=== PATIENT | male | born 1975 | race Caucasian/White ===

== ENCOUNTER 2018-01-18 15:48 | Emergency (ER) | payer MEDICAID ==
[~2018-01-18] VITALS: Ht 175.3 cm; Wt 92.3 kg
[2018-01-18 16:10] VITALS: BP 129/88
--- NOTE | 2018-01-18 17:54 | NUR ---
PT IN GOWN AT THIS TIME. RESTING IN BED AND AWAITING MD CLANCY.
== END 2018-01-18 18:40 | disposition home or self-care (01) ==
LOC: ED 18:17
DX: Z43.6 Encounter for attention to other artificial openings of urinary tract (principal)
CPT/HCPCS: 99281

== ENCOUNTER 2018-06-08 02:38 | Inpatient (IN) | payer MEDICAID ==
[~2018-06-08] VITALS: Ht 175.3 cm; Wt 95.3 kg
[2018-06-08] MEDS ORDERED: ONDANSETRON 2MG/ML, 2ML ONE (02:51)
--- NOTE | 2018-06-08 02:51 | NUR ---
EP CALLED PER DR SHAVER AND THEY WILL ADD VIRAL CULTURES, WEST NILE ON TO LP FLUID.
[2018-06-08] MEDS ORDERED: SODIUM CHLORIDE 0.9% 1,000 ML IV ONE (02:52)
[2018-06-08] MEDS ORDERED: MORPHINE SULFATE 4 MG/ML, 1ML ONE (02:52)
[2018-06-08] MEDS ORDERED: ONDANSETRON 2MG/ML, 2ML IVPush ONE (03:00)
[2018-06-08] MEDS ORDERED: SODIUM CHLORIDE FLUSH 10ML SYR IVF ONE (03:00)
[2018-06-08] MEDS ORDERED: MORPHINE SULFATE 4 MG/ML, 1ML IVPush PRN (03:00)
--- NOTE | 2018-06-08 03:04 | NUR ---
pt resting comfortably in [facility] at this time. Dr. Shelton assessed pt and new orders received. IV access obtained x 2. Pt attached to vs machines. vss at this time. Pt placed in negative pressure room with droplet precautions and isolation cart in place. pt educated on er process and poc and verbalizes understanding. Call light is within reach at this time. Pt denies any other needs at this time.
--- NOTE | 2018-06-08 03:30 | NUR ---
report of pt to floor rn. all questions answered.
[2018-06-08 03:41] VITALS: BP 116/81
[2018-06-08] MEDS: SODIUM CHLORIDE 0.9% 1,000 ML IV SCH ×3 (03:59→22:12)
[2018-06-08] MEDS ORDERED: ONDANSETRON 2MG/ML, 2ML IVPush PRN (04:00)
[2018-06-08] MEDS ORDERED: HYDROcodone/APAP 5/325 TABLET PO PRN (04:00)
[2018-06-08 04:56] LABS: HCT (SEDRATE) 51.2 % (39.2-51.8)
[2018-06-08 04:57] LABS: BASOPHILS # (AUTO) 0.01 x10^3/uL (0-0.1); BASOPHILS % (AUTO) 0 % (0-1); EOSINOPHILS % (AUTO) 0 % (1-7); LYMPHOCYTES # (AUTO) 0.77 x10^3/uL (1-3.4); LYMPHOCYTES % (AUTO) 15 % (22-44); MD NO; MEAN CORPUSCULAR HEMOGLOBIN 32.2 pg (27.5-34.5); MEAN CORPUSCULAR HGB CONC 34.6 g/dL (33.2-36.2); MEAN CORPUSCULAR VOLUME 93.1 fL (81-97); MEAN PLATELET VOLUME 7.6 fL (7.4-10.4); MONOCYTES # (AUTO) 0.05 x10^3/uL (0.2-0.8); MONOCYTES % (AUTO) 1 % (2-9); NEUTROPHILS # (AUTO) 4.18 x10^3/uL (1.8-6.8); NEUTROPHILS % (AUTO) 83 % (42-75); PLATELET COUNT 264 x10^3/uL (130-400); RED BLOOD COUNT 5.49 x10^6/uL (4.38-5.82)
[2018-06-08 05:00] LABS: ANION GAP 5 mmol/L (5-15); C-REACTIVE PROTEIN, QUANT 0.04 mg/dL (0.02-0.49); CALCIUM 8.2 mg/dL (8.5-10.1); CHLORIDE 109 mmol/L (98-107); CREATININE 1.17 mg/dL (0.7-1.3)
[2018-06-08 05:02] LABS: CREATINE KINASE, TOTAL 117 U/L (39-308)
[2018-06-08 07:31] VITALS: BP 114/76
[2018-06-08] MEDS: morphine SULFATE 10 MG/ML, 1ML IVPush PRN ×3 (07:38→21:46)
[2018-06-08] MEDS ORDERED: VANCOMYCIN PER PHARMACY MC PRN (09:00)
[2018-06-08] MEDS ORDERED: PHARMACOKINETIC MONITORING MC PRN (09:30)
[2018-06-08] MEDS ORDERED: ACYCLOVIR IV SCH ×2 (09:30→09:32)
[2018-06-08] MEDS ORDERED: SODIUM CHLORIDE 0.9% IV SCH ×2 (09:30→09:32)
[2018-06-08] MEDS ORDERED: PHARMACOKINETIC CONSULTATION MC ONE (09:30)
[2018-06-08] MEDS ORDERED: [UNRECOGNIZED DRUG - REMARK] MC SCH (09:30)
[2018-06-08 09:51] LABS: MICROSCOPIC NOT IND
[2018-06-08] MEDS: CEFTRIAXONE PMX 2GM/50ML 50 ML IV SCH ×2 (10:04→21:33)
[2018-06-08] MEDS: NICOTINE 21 MG/24 HR PATCH.TD24 TD SCH (11:01)
[2018-06-08] MEDS: VANCOMYCIN 2,000 MG in SODIUM CHLORIDE 0.9% 500 ML IV SCH (11:05)
[2018-06-08] MEDS: SODIUM CHLORIDE 0.9% IV SCH ×2 (13:29→22:12)
[2018-06-08] MEDS: ACYCLOVIR IV SCH ×2 (13:29→22:12)
[2018-06-08 14:00] VITALS: BP 117/67
[2018-06-08 17:37] LABS: HCT (SEDRATE) 45.7 % (39.2-51.8)
[2018-06-08 19:48] VITALS: BP 111/71
[2018-06-09] MEDS: VANCOMYCIN 2,000 MG in SODIUM CHLORIDE 0.9% 500 ML IV SCH ×2 (00:02→13:07)
[2018-06-09 00:20] VITALS: BP 106/65
[2018-06-09] MEDS: morphine SULFATE 10 MG/ML, 1ML IVPush PRN ×4 (03:45→21:45)
[2018-06-09] MEDS: SODIUM CHLORIDE 0.9% IV SCH ×2 (05:43→16:59)
[2018-06-09] MEDS: ACYCLOVIR IV SCH ×2 (05:43→16:59)
[2018-06-09 06:18] LABS: BASOPHILS # (AUTO) 0.04 x10^3/uL (0-0.1); BASOPHILS % (AUTO) 1 % (0-1); EOSINOPHILS # (AUTO) 0.07 x10^3/uL (0-0.4); EOSINOPHILS % (AUTO) 1 % (1-7); LYMPHOCYTES # (AUTO) 3.05 x10^3/uL (1-3.4); LYMPHOCYTES % (AUTO) 37 % (22-44); MD NO; MEAN CORPUSCULAR HGB CONC 35.3 g/dL (33.2-36.2); MEAN CORPUSCULAR VOLUME 93.4 fL (81-97); MEAN PLATELET VOLUME 7.9 fL (7.4-10.4); MONOCYTES # (AUTO) 0.83 x10^3/uL (0.2-0.8); MONOCYTES % (AUTO) 10 % (2-9); NEUTROPHILS # (AUTO) 4.26 x10^3/uL (1.8-6.8); NEUTROPHILS % (AUTO) 52 % (42-75); PLATELET COUNT 242 x10^3/uL (130-400); RED BLOOD COUNT 4.71 x10^6/uL (4.38-5.82); RED CELL DISTRIBUTION WIDTH 13.1 % (9.4-14.8)
[2018-06-09 06:27] LABS: ANION GAP 6 mmol/L (5-15); CALCIUM 7.8 mg/dL (8.5-10.1); CHLORIDE 111 mmol/L (98-107)
[2018-06-09 07:30] VITALS: BP 116/72
[2018-06-09] MEDS: CEFTRIAXONE PMX 2GM/50ML 50 ML IV SCH ×2 (08:57→21:26)
[2018-06-09] MEDS: NICOTINE 21 MG/24 HR PATCH.TD24 TD SCH (10:37)
[2018-06-09] MEDS: SODIUM CHLORIDE 0.9% 1,000 ML IV SCH ×2 (11:24→21:26)
[2018-06-09 13:52] VITALS: BP 113/71
[2018-06-09] MEDS: ACETAMINOPHEN 325 MG TABLET PO PRN ×2 (13:57→21:44)
[2018-06-09 15:36] VITALS: BP 117/73
[2018-06-09 18:49] VITALS: BP 133/79
[2018-06-10] MEDS: VANCOMYCIN 2,000 MG in SODIUM CHLORIDE 0.9% 500 ML IV SCH ×2 (00:07→12:23)
[2018-06-10 01:05] VITALS: BP 108/73
[2018-06-10] MEDS: SODIUM CHLORIDE 0.9% IV SCH ×3 (02:40→18:37)
[2018-06-10] MEDS: ACYCLOVIR IV SCH ×3 (02:40→18:37)
[2018-06-10] MEDS: morphine SULFATE 10 MG/ML, 1ML IVPush PRN ×5 (05:27→22:11)
[2018-06-10 05:54] LABS: BASOPHILS # (AUTO) 0.09 x10^3/uL (0-0.1); BASOPHILS % (AUTO) 1 % (0-1); EOSINOPHILS # (AUTO) 0.08 x10^3/uL (0-0.4); EOSINOPHILS % (AUTO) 1 % (1-7); LYMPHOCYTES # (AUTO) 1.89 x10^3/uL (1-3.4); LYMPHOCYTES % (AUTO) 26 % (22-44); MD NO; MEAN CORPUSCULAR HEMOGLOBIN 32.2 pg (27.5-34.5); MEAN CORPUSCULAR HGB CONC 34.4 g/dL (33.2-36.2); MEAN CORPUSCULAR VOLUME 93.8 fL (81-97); MEAN PLATELET VOLUME 7.7 fL (7.4-10.4); MONOCYTES # (AUTO) 0.78 x10^3/uL (0.2-0.8); MONOCYTES % (AUTO) 11 % (2-9); NEUTROPHILS # (AUTO) 4.51 x10^3/uL (1.8-6.8); NEUTROPHILS % (AUTO) 61 % (42-75); PLATELET COUNT 260 x10^3/uL (130-400); RED BLOOD COUNT 5.13 x10^6/uL (4.38-5.82); RED CELL DISTRIBUTION WIDTH 13.1 % (9.4-14.8)
[2018-06-10 05:59] LABS: ALBUMIN 3.3 g/dL (3.4-5.0); ANION GAP 6 mmol/L (5-15); CALCIUM 8.4 mg/dL (8.5-10.1); CHLORIDE 108 mmol/L (98-107)
[2018-06-10 06:04] LABS: ALANINE AMINOTRANSFERASE 25 U/L (12-78); ALKALINE PHOSPHATASE 74 U/L (45-117); BILIRUBIN,TOTAL 0.9 mg/dL (0.2-1.0); CREATININE 1.05 mg/dL (0.7-1.3); TOTAL PROTEIN 6.1 g/dL (6.4-8.2)
[2018-06-10 07:48] VITALS: BP 124/76
[2018-06-10] MEDS: ACETAMINOPHEN 325 MG TABLET PO PRN ×2 (08:11→19:52)
[2018-06-10] MEDS: CEFTRIAXONE PMX 2GM/50ML 50 ML IV SCH ×2 (09:45→22:12)
[2018-06-10] MEDS: SODIUM CHLORIDE 0.9% 1,000 ML IV SCH ×2 (10:00→18:37)
[2018-06-10] MEDS: NICOTINE 21 MG/24 HR PATCH.TD24 TD SCH (12:23)
[2018-06-10 13:35] VITALS: BP 121/76
[2018-06-10 19:32] VITALS: BP 114/73
[2018-06-10] MEDS: IBUPROFEN 200 MG TABLET PO PRN (22:10)
[2018-06-11 00:18] VITALS: BP 115/74
[2018-06-11] MEDS: VANCOMYCIN 2,000 MG in SODIUM CHLORIDE 0.9% 500 ML IV SCH ×2 (00:21→12:28)
[2018-06-11] MEDS: ACETAMINOPHEN 325 MG TABLET PO PRN ×2 (00:21→19:52)
[2018-06-11] MEDS: ACYCLOVIR IV SCH ×3 (02:37→18:22)
[2018-06-11] MEDS: SODIUM CHLORIDE 0.9% IV SCH ×3 (02:37→18:22)
[2018-06-11] MEDS: morphine SULFATE 10 MG/ML, 1ML IVPush PRN ×6 (02:38→23:08)
[2018-06-11 05:31] LABS: BASOPHILS # (AUTO) 0.09 x10^3/uL (0-0.1); BASOPHILS % (AUTO) 1 % (0-1); EOSINOPHILS # (AUTO) 0.13 x10^3/uL (0-0.4); EOSINOPHILS % (AUTO) 2 % (1-7); LYMPHOCYTES % (AUTO) 38 % (22-44); MD NO; MEAN CORPUSCULAR HEMOGLOBIN 32.4 pg (27.5-34.5); MEAN CORPUSCULAR HGB CONC 34.5 g/dL (33.2-36.2); MEAN CORPUSCULAR VOLUME 93.9 fL (81-97); MEAN PLATELET VOLUME 7.8 fL (7.4-10.4); MONOCYTES # (AUTO) 0.97 x10^3/uL (0.2-0.8); MONOCYTES % (AUTO) 14 % (2-9); NEUTROPHILS # (AUTO) 3.18 x10^3/uL (1.8-6.8); NEUTROPHILS % (AUTO) 45 % (42-75); PLATELET COUNT 250 x10^3/uL (130-400); RED BLOOD COUNT 5.04 x10^6/uL (4.38-5.82); RED CELL DISTRIBUTION WIDTH 12.9 % (9.4-14.8)
[2018-06-11 05:37] LABS: CHLORIDE 109 mmol/L (98-107)
[2018-06-11 05:44] LABS: ALANINE AMINOTRANSFERASE 21 U/L (12-78); ALBUMIN 2.8 g/dL (3.4-5.0); ALKALINE PHOSPHATASE 63 U/L (45-117); ANION GAP 7 mmol/L (5-15); BILIRUBIN,TOTAL 0.7 mg/dL (0.2-1.0); CREATININE 1.05 mg/dL (0.7-1.3); TOTAL PROTEIN 5.6 g/dL (6.4-8.2)
[2018-06-11] MEDS: IBUPROFEN 200 MG TABLET PO PRN ×2 (06:05→22:09)
[2018-06-11] MEDS: SODIUM CHLORIDE 0.9% 1,000 ML IV SCH (06:05)
[2018-06-11 09:45] VITALS: BP 119/77
[2018-06-11] MEDS: CEFTRIAXONE PMX 2GM/50ML 50 ML IV SCH ×2 (09:57→22:09)
[2018-06-11 12:16] VITALS: BP 116/66
[2018-06-11] MEDS: NICOTINE 21 MG/24 HR PATCH.TD24 TD SCH (12:29)
[2018-06-11 14:37] LABS: MICROSCOPIC NOT IND
[2018-06-11 14:44] LABS: CULTURE INDICATED? NO
[2018-06-11 19:37] VITALS: BP 130/80
[2018-06-11 21:59] VITALS: BP 119/75
[2018-06-12] MEDS: VANCOMYCIN 2,000 MG in SODIUM CHLORIDE 0.9% 500 ML IV SCH (00:13)
[2018-06-12 00:17] VITALS: BP 155/76
[2018-06-12] MEDS: ACETAMINOPHEN 325 MG TABLET PO PRN (00:20)
[2018-06-12] MEDS: morphine SULFATE 10 MG/ML, 1ML IVPush PRN ×4 (02:42→22:38)
[2018-06-12] MEDS: ACYCLOVIR IV SCH ×3 (02:43→19:37)
[2018-06-12] MEDS: SODIUM CHLORIDE 0.9% IV SCH ×3 (02:43→19:37)
[2018-06-12 05:38] LABS: BASOPHILS % (AUTO) 2 % (0-1); EOSINOPHILS # (AUTO) 0.18 x10^3/uL (0-0.4); EOSINOPHILS % (AUTO) 3 % (1-7); LYMPHOCYTES % (AUTO) 33 % (22-44); MD NO; MEAN CORPUSCULAR HEMOGLOBIN 32.6 pg (27.5-34.5); MEAN CORPUSCULAR HGB CONC 34.7 g/dL (33.2-36.2); MEAN CORPUSCULAR VOLUME 93.9 fL (81-97); MEAN PLATELET VOLUME 7.7 fL (7.4-10.4); MONOCYTES % (AUTO) 11 % (2-9); NEUTROPHILS # (AUTO) 3.62 x10^3/uL (1.8-6.8); NEUTROPHILS % (AUTO) 52 % (42-75); PLATELET COUNT 263 x10^3/uL (130-400); RED BLOOD COUNT 5.01 x10^6/uL (4.38-5.82); RED CELL DISTRIBUTION WIDTH 12.9 % (9.4-14.8)
[2018-06-12 05:49] LABS: CHLORIDE 110 mmol/L (98-107)
[2018-06-12 05:58] LABS: ALANINE AMINOTRANSFERASE 21 U/L (12-78); ALKALINE PHOSPHATASE 64 U/L (45-117); ANION GAP 9 mmol/L (5-15); BILIRUBIN,TOTAL 0.6 mg/dL (0.2-1.0); CALCIUM 8.3 mg/dL (8.5-10.1); TOTAL PROTEIN 5.8 g/dL (6.4-8.2)
[2018-06-12 08:27] VITALS: BP 149/78
[2018-06-12] MEDS: CEFTRIAXONE PMX 2GM/50ML 50 ML IV SCH (10:12)
[2018-06-12] MEDS: NICOTINE 21 MG/24 HR PATCH.TD24 TD SCH (11:11)
[2018-06-12 13:54] VITALS: BP 134/77
[2018-06-12 19:31] VITALS: BP 139/80
[2018-06-13 01:12] VITALS: BP 131/74
[2018-06-13] MEDS: ACYCLOVIR IV SCH ×3 (03:29→20:23)
[2018-06-13] MEDS: SODIUM CHLORIDE 0.9% IV SCH ×3 (03:29→20:23)
[2018-06-13] MEDS: morphine SULFATE 10 MG/ML, 1ML IVPush PRN ×3 (03:37→19:29)
[2018-06-13 05:58] LABS: BASOPHILS # (AUTO) 0.09 x10^3/uL (0-0.1); BASOPHILS % (AUTO) 1 % (0-1); EOSINOPHILS # (AUTO) 0.17 x10^3/uL (0-0.4); EOSINOPHILS % (AUTO) 2 % (1-7); LYMPHOCYTES # (AUTO) 2.36 x10^3/uL (1-3.4); LYMPHOCYTES % (AUTO) 21 % (22-44); MD NO; MEAN CORPUSCULAR HEMOGLOBIN 32.5 pg (27.5-34.5); MEAN CORPUSCULAR HGB CONC 34.8 g/dL (33.2-36.2); MEAN CORPUSCULAR VOLUME 93.3 fL (81-97); MEAN PLATELET VOLUME 7.6 fL (7.4-10.4); MONOCYTES # (AUTO) 0.95 x10^3/uL (0.2-0.8); MONOCYTES % (AUTO) 9 % (2-9); NEUTROPHILS # (AUTO) 7.57 x10^3/uL (1.8-6.8); NEUTROPHILS % (AUTO) 68 % (42-75); PLATELET COUNT 279 x10^3/uL (130-400); RED BLOOD COUNT 5.11 x10^6/uL (4.38-5.82); RED CELL DISTRIBUTION WIDTH 13.2 % (9.4-14.8)
[2018-06-13 06:00] LABS: ALBUMIN 3.2 g/dL (3.4-5.0); ANION GAP 7 mmol/L (5-15); CALCIUM 8.3 mg/dL (8.5-10.1); CHLORIDE 109 mmol/L (98-107)
[2018-06-13 06:05] LABS: ALANINE AMINOTRANSFERASE 20 U/L (12-78); ALKALINE PHOSPHATASE 63 U/L (45-117); BILIRUBIN,TOTAL 0.9 mg/dL (0.2-1.0); TOTAL PROTEIN 6.1 g/dL (6.4-8.2)
[2018-06-13 07:25] VITALS: BP 124/78
[2018-06-13] MEDS: NICOTINE 21 MG/24 HR PATCH.TD24 TD SCH (12:33)
[2018-06-13] MEDS: ACETAMINOPHEN 325 MG TABLET PO PRN (12:34)
[2018-06-13] MEDS: NS + 20MEQ KCL 1,000 ML IV SCH ×2 (13:00→22:29)
[2018-06-13] MEDS ORDERED: GADOBUTROL 10 MMOL/10 ML PFS ONE (13:21)
[2018-06-13 13:27] VITALS: BP 127/74
[2018-06-13 19:39] VITALS: BP 129/83
[2018-06-14] MEDS: morphine SULFATE 10 MG/ML, 1ML IVPush PRN ×4 (01:03→18:10)
[2018-06-14 01:20] VITALS: BP 121/78
[2018-06-14] MEDS: ACYCLOVIR IV SCH ×3 (04:34→20:48)
[2018-06-14] MEDS: SODIUM CHLORIDE 0.9% IV SCH ×3 (04:34→20:48)
[2018-06-14 04:53] LABS: BASOPHILS # (AUTO) 0.06 x10^3/uL (0-0.1); BASOPHILS % (AUTO) 1 % (0-1); EOSINOPHILS % (AUTO) 2 % (1-7); LYMPHOCYTES # (AUTO) 2.87 x10^3/uL (1-3.4); LYMPHOCYTES % (AUTO) 31 % (22-44); MD NO; MEAN CORPUSCULAR HEMOGLOBIN 32.7 pg (27.5-34.5); MEAN CORPUSCULAR HGB CONC 34.5 g/dL (33.2-36.2); MEAN CORPUSCULAR VOLUME 94.6 fL (81-97); MEAN PLATELET VOLUME 7.5 fL (7.4-10.4); MONOCYTES # (AUTO) 0.82 x10^3/uL (0.2-0.8); MONOCYTES % (AUTO) 9 % (2-9); NEUTROPHILS # (AUTO) 5.34 x10^3/uL (1.8-6.8); NEUTROPHILS % (AUTO) 58 % (42-75); PLATELET COUNT 281 x10^3/uL (130-400); RED BLOOD COUNT 4.96 x10^6/uL (4.38-5.82)
[2018-06-14 05:02] LABS: ANION GAP 7 mmol/L (5-15); CALCIUM 8.4 mg/dL (8.5-10.1); CHLORIDE 110 mmol/L (98-107)
[2018-06-14 05:06] LABS: CREATININE 1.01 mg/dL (0.7-1.3)
[2018-06-14 08:00] VITALS: BP 118/75
[2018-06-14] MEDS: NS + 20MEQ KCL 1,000 ML IV SCH ×2 (08:41→18:10)
[2018-06-14] MEDS: NICOTINE 21 MG/24 HR PATCH.TD24 TD SCH (12:40)
[2018-06-14 14:00] VITALS: BP 129/78
[2018-06-14] MEDS ORDERED: POLYETHYLENE GLYCOL 17 GM PACKET PO PRN (17:00)
[2018-06-14] MEDS ORDERED: SENNA/DOCUSATE TABLET PO PRN (17:00)
[2018-06-14 18:45] VITALS: BP 145/76
[2018-06-15] MEDS: ACETAMINOPHEN 325 MG TABLET PO PRN (00:40)
[2018-06-15] MEDS: morphine SULFATE 10 MG/ML, 1ML IVPush PRN ×3 (00:40→10:19)
[2018-06-15 01:02] VITALS: BP 130/77
[2018-06-15] MEDS: NS + 20MEQ KCL 1,000 ML IV SCH ×2 (02:24→13:30)
[2018-06-15] MEDS: ACYCLOVIR IV SCH ×2 (04:46→13:30)
[2018-06-15] MEDS: SODIUM CHLORIDE 0.9% IV SCH ×2 (04:46→13:30)
[2018-06-15 05:18] LABS: ALBUMIN 3.2 g/dL (3.4-5.0); ANION GAP 7 mmol/L (5-15); CALCIUM 8.2 mg/dL (8.5-10.1); CHLORIDE 114 mmol/L (98-107)
[2018-06-15 05:19] LABS: CREATININE 1.04 mg/dL (0.7-1.3)
[2018-06-15 08:30] VITALS: BP 145/69
[2018-06-15] MEDS ORDERED: morphine SULFATE 10 MG/ML, 1ML IVPush PRN (13:00)
[2018-06-15] MEDS ORDERED: OXYcodone/APAP 5/325MG TABLET PO PRN (13:30)
[2018-06-15] MEDS ORDERED: methylPREDNISolone 4mg DOSE PACK PO ONE (13:30)
[2018-06-15] MEDS: NICOTINE 21 MG/24 HR PATCH.TD24 TD SCH (13:30)
[2018-06-15 15:30] VITALS: BP 128/74
[2018-06-15] MEDS ORDERED: HYDROcodone/APAP 5/325 TABLET PO PRN (16:00)
== END 2018-06-15 17:44 | disposition left against medical advice (07) | DRG 98 ==
LOC: ED 02:41 → 3NE 03:06
PROVIDERS: ADMIT Emergency Medicine; ATTEND Emergency Medicine
DX: G03.0 Nonpyogenic meningitis (principal); N20.2 Calculus of kidney with calculus of ureter; W57.XXXA Bitten or stung by nonvenomous insect and other nonvenomous arthropods, initial encounter; M54.12 Radiculopathy, cervical region; H53.149 Visual discomfort, unspecified; E86.0 Dehydration; F15.10 Other stimulant abuse, uncomplicated; G43.C0 Periodic headache syndromes in child or adult, not intractable; M48.02 Spinal stenosis, cervical region; F17.200 Nicotine dependence, unspecified, uncomplicated; Z86.61 Personal history of infections of the central nervous system; Y93.89 Activity, other specified; Y92.89 Other specified places as the place of occurrence of the external cause; Y99.8 Other external cause status; Z53.21 Procedure and treatment not carried out due to patient leaving prior to being seen by health care provider; N20.0 Calculus of kidney
CPT/HCPCS: 36415; 70553; 71045; 72050; 72141; 80048; 80053; 80202; 81003; 82040; 82550; 84145; 85025; 85651; 86140; 87040; 87529; 87806; 96374; 96375; A9585; G0378; J0133; J0696; J2405; J3370; J3480; J7509; G0475; J2270; J7030; J7040; J7050